=== PATIENT | male | born 1945 | race Caucasian/White ===

== ENCOUNTER 2019-08-22 08:25 | Inpatient (IN) ==
[2019-08-22] MEDS ORDERED: Gadolinium Contrast Agent (WT Based) IV PRN (11:09)
[2019-08-22] MEDS ORDERED: Ringers Solution, Lactated 1,000 ML IVC ONE (11:16)
[2019-08-22] MEDS: Ondansetron ODT 4 MG TAB.RAPDIS SL PRN (12:01)
[2019-08-22] MEDS ORDERED: *HR* LORazepam 2 MG/ML VIAL IM STA (15:00)
[2019-08-22] MEDS ORDERED: Ringers Solution, Lactated 500 ML IVC ONE (15:48)
[2019-08-22] MEDS ORDERED: D5% in Water 1,000 ML IVC PRN (17:49)
[2019-08-22] MEDS ORDERED: *HR* Dextrose 50 % in Water (Syg) 50 ML SYRINGE IVP PRN (17:49)
[2019-08-22] MEDS ORDERED: Dextrose Gel 15 GM/37.5 ML TUBE PO PRN ×2 (17:49)
[2019-08-22] MEDS: Insulin LISPRO 300 UNITS/3 ML VIAL SQ SCH (18:18)
[2019-08-22] MEDS: cefTRIAXone 2,000 MG in Water for inj. (sterile) 20 ML IVP SCH (18:44)
[2019-08-22] MEDS: Finasteride 5 MG TABLET PO SCH (18:44)
[2019-08-22] MEDS ORDERED: *HR* LORazepam 2 MG/ML VIAL IVP ONE (19:41)
[2019-08-22] MEDS: Acetaminophen 325 MG TABLET PO SCH (20:41)
[2019-08-22] MEDS: QUEtiapine Fumarate 25 MG TABLET PO SCH (20:41)
[2019-08-22] MEDS ORDERED: metroNIDAZOLE 500 MG TABLET PO SCH (21:00)
[2019-08-22] MEDS: Haloperidol Lactate 5 MG/ML VIAL IVP PRN (21:16)
[2019-08-22] MEDS ORDERED: *HR* Promethazine 25 MG/ML VIAL IVP STA (21:18)
[2019-08-22 23:53] LABS: ABG Base Excess -2 mEq/L (-2 to 3); ABG HCO3 22 mEq/L (21-27); ABG Oxygen Saturation 96 % (95-98); ABG PCO2 33 mmHg (35-45); ABG PH 7.43 pH Units (7.32-7.45); ABG PO2 80 mmHg (85-104); ABG TCO2 23 mEq/L (20-26)
[2019-08-23] MEDS: Insulin LISPRO 300 UNITS/3 ML VIAL SQ SCH ×5 (00:10→22:23)
[2019-08-23] MEDS: Haloperidol Lactate 5 MG/ML VIAL IVP PRN ×2 (01:48→22:15)
[2019-08-23] MEDS: *HR* Promethazine 25 MG/ML VIAL IVP PRN ×2 (01:52→22:16)
[2019-08-23] MEDS ORDERED: Ziprasidone 10 MG in Water for inj. (sterile) 0.5 ML IM ONE (02:52)
[2019-08-23 05:25] LABS: Basophils % 0.4 %; Eosinophils % 0.5 %; Hematocrit 42.8 % (37.5-50.1); Hemoglobin 13.9 g/dL (12.9-16.9); Immature Granulocytes % 0.6 % (0-4); Lymphocytes # 0.6 K/mcL (0.6-4.6); Lymphocytes % 7.2 %; Mean Corpuscular HGB Conc 32.5 g/dL (31.6-35.5); Mean Corpuscular Hemoglobin 29.8 pg (28.0-33.3); Mean Corpuscular Volume 91.6 fL (83.0-100.0); Mean Platelet Volume 9.8 fL (9.4-12.4); Monocytes # 0.8 K/mcL (0.0-1.3); Monocytes % 9.9 %; Neutrophils # 6.9 K/mcL (1.6-8.9); Platelet Count 229 K/mcL (140-400); Red Blood Count 4.67 M/mcL (4.19-5.50); Red Cell Distribution Width 13.2 % (11.5-14.5); Segmented Neutrophils % 81.4 %; White Blood Count 8.4 K/mcL (4.3-11.1)
[2019-08-23 05:41] LABS: BUN/Creatinine Ratio 18 (6-26); Blood Urea Nitrogen 23 mg/dL (8-23); Calcium 8.8 mg/dL (8.6-10.3); Carbon Dioxide 22 mEq/L (23-29); Chloride 101 mEq/L (98-107); Glucose 148 mg/dL (70-105); Osmolality,Calculated 288 (280-300); Potassium 3.9 mEq/L (3.5-5.1); Sodium 136 mEq/L (136-145); eGFR For African Americans > 60 (> 60); eGFR For Non-African Americans 56 (> 60)
[2019-08-23] MEDS ORDERED: Acetaminophen IV 1,000 MG/100 ML INFUS..BTL IVPB ONE (07:08)
[2019-08-23] MEDS: Finasteride 5 MG TABLET PO SCH (08:46)
[2019-08-23] MEDS: MetroNIDAZOLE 500 MG/100 ML 500 MG/100 ML BAG IVPB SCH ×2 (08:47→15:41)
[2019-08-23] MEDS: Acetaminophen 325 MG TABLET PO SCH ×3 (08:47→20:35)
[2019-08-23 09:32] LABS: Alanine Aminotransferase 13 Units/L (7-52); Albumin 3.4 g/dL (3.5-5.7); Albumin/Globulin Ratio 1.2 (1.1-2.2); Alkaline Phosphatase 59 Units/L (34-104); Aspartate Amino Transferase 21 Units/L (13-39); Bilirubin,Direct 0.5 mg/dL (0.0-0.2); Bilirubin,Indirect 0.8 mg/dL (0.0-1.0); Bilirubin,Total 1.3 mg/dL (0.3-1.0); Globulin 2.9 g/dL (2.4-3.5); Total Protein 6.3 g/dL (6.4-8.9)
[2019-08-23] MEDS: cefTRIAXone 2,000 MG in Water for inj. (sterile) 20 ML IVP SCH (17:59)
[2019-08-23] MEDS: *HR* Heparin 5,000 UNIT/ML VIAL SQ SCH (18:01)
[2019-08-23] MEDS: QUEtiapine Fumarate 25 MG TABLET PO SCH (20:35)
[2019-08-24] MEDS: MetroNIDAZOLE 500 MG/100 ML 500 MG/100 ML BAG IVPB SCH ×3 (01:09→16:30)
[2019-08-24] MEDS ORDERED: Acetaminophen IV 1,000 MG/100 ML INFUS..BTL IVPB ONE (01:47)
[2019-08-24] MEDS ORDERED: Ziprasidone 10 MG in Water for inj. (sterile) 0.5 ML IM PRN ×2 (01:49→20:57)
[2019-08-24] MEDS ORDERED: Ziprasidone 10 MG in Water for inj. (sterile) 0.5 ML IM ONE ×2 (02:31→23:30)
[2019-08-24] MEDS: Haloperidol Lactate 5 MG/ML VIAL IVP PRN (05:17)
[2019-08-24 06:31] LABS: Basophils % 0.5 %; Eosinophils # 0.1 K/mcL (0.0-0.6); Eosinophils % 0.8 %; Hematocrit 43.9 % (37.5-50.1); Hemoglobin 14.2 g/dL (12.9-16.9); Immature Granulocytes % 0.7 % (0-4); Lymphocytes # 0.8 K/mcL (0.6-4.6); Lymphocytes % 9.7 %; Mean Corpuscular HGB Conc 32.3 g/dL (31.6-35.5); Mean Corpuscular Hemoglobin 30.1 pg (28.0-33.3); Mean Corpuscular Volume 93.2 fL (83.0-100.0); Mean Platelet Volume 9.6 fL (9.4-12.4); Monocytes # 0.9 K/mcL (0.0-1.3); Monocytes % 10.5 %; Neutrophils # 6.5 K/mcL (1.6-8.9); Platelet Count 223 K/mcL (140-400); Red Blood Count 4.71 M/mcL (4.19-5.50); Red Cell Distribution Width 13.2 % (11.5-14.5); Segmented Neutrophils % 77.8 %; White Blood Count 8.4 K/mcL (4.3-11.1)
[2019-08-24 06:49] LABS: BUN/Creatinine Ratio 23 (6-26); Blood Urea Nitrogen 27 mg/dL (8-23); Calcium 8.9 mg/dL (8.6-10.3); Carbon Dioxide 22 mEq/L (23-29); Chloride 101 mEq/L (98-107); Glucose 138 mg/dL (70-105); Osmolality,Calculated 285 (280-300); Potassium 3.9 mEq/L (3.5-5.1); Sodium 134 mEq/L (136-145); eGFR For African Americans > 60 (> 60); eGFR For Non-African Americans 60 (> 60)
[2019-08-24] MEDS: *HR* Heparin 5,000 UNIT/ML VIAL SQ SCH ×2 (07:01→18:51)
[2019-08-24] MEDS: Insulin LISPRO 300 UNITS/3 ML VIAL SQ SCH ×4 (08:58→20:23)
[2019-08-24] MEDS: Finasteride 5 MG TABLET PO SCH (09:05)
[2019-08-24] MEDS: Acetaminophen 325 MG TABLET PO SCH ×3 (09:05→20:28)
[2019-08-24] MEDS: *HR* Metoprolol 5 MG/5 ML VIAL IVP PRN (13:26)
[2019-08-24] MEDS ORDERED: OLANZapine 10 MG VIAL IM ONE (18:00)
[2019-08-24] MEDS: cefTRIAXone 2,000 MG in Water for inj. (sterile) 20 ML IVP SCH (18:50)
[2019-08-24] MEDS ORDERED: Isovue-370 500 ML BOTTLE IVP ONE (21:44)
[2019-08-25] MEDS: Haloperidol Lactate 5 MG/ML VIAL IVP PRN (00:39)
[2019-08-25] MEDS: MetroNIDAZOLE 500 MG/100 ML 500 MG/100 ML BAG IVPB SCH ×3 (00:55→16:05)
[2019-08-25] MEDS ORDERED: Vancomycin 1,750 MG in 0.9 % Sodium Chloride 250 ML IVPB SCH (01:00)
[2019-08-25] MEDS: QUEtiapine Fumarate 25 MG TABLET PO SCH ×2 (01:38→19:54)
[2019-08-25] MEDS: *HR* Promethazine 25 MG/ML VIAL IVP PRN (01:38)
[2019-08-25] MEDS: *HR* Metoprolol 5 MG/5 ML VIAL IVP PRN ×2 (06:30→14:13)
[2019-08-25] MEDS ORDERED: Haloperidol Lactate 5 MG/ML VIAL IM PRN (06:39)
[2019-08-25] MEDS ORDERED: Haloperidol Lactate 5 MG/ML VIAL IVP ONE (06:43)
[2019-08-25] MEDS ORDERED: 0.9 % Sodium Chloride 1,000 ML ONE (06:55)
[2019-08-25] MEDS ORDERED: 0.9 % Sodium Chloride 1,000 ML IVC ONE (07:00)
[2019-08-25] MEDS: Piperacillin/Tazobactam 3.375 GM in 0.9 % Sodium Chloride Mini Bag 100 ML IVPB SCH ×3 (07:46→16:04)
[2019-08-25 08:25] LABS: Basophils % 0.3 %; Eosinophils # 0.1 K/mcL (0.0-0.6); Eosinophils % 0.7 %; Hemoglobin 13.4 g/dL (12.9-16.9); Immature Granulocytes % 0.6 % (0-4); Lymphocytes # 0.7 K/mcL (0.6-4.6); Lymphocytes % 7.8 %; Mean Corpuscular HGB Conc 33.5 g/dL (31.6-35.5); Mean Corpuscular Hemoglobin 29.8 pg (28.0-33.3); Mean Corpuscular Volume 89.1 fL (83.0-100.0); Mean Platelet Volume 9.8 fL (9.4-12.4); Monocytes # 0.8 K/mcL (0.0-1.3); Monocytes % 9.2 %; Platelet Count 250 K/mcL (140-400); Red Blood Count 4.49 M/mcL (4.19-5.50); Red Cell Distribution Width 13.2 % (11.5-14.5); Segmented Neutrophils % 81.4 %; White Blood Count 8.6 K/mcL (4.3-11.1)
[2019-08-25] MEDS: *HR* Heparin 5,000 UNIT/ML VIAL SQ SCH (08:45)
[2019-08-25 08:50] LABS: BUN/Creatinine Ratio 24 (6-26); Blood Urea Nitrogen 27 mg/dL (8-23); Calcium 8.7 mg/dL (8.6-10.3); Carbon Dioxide 23 mEq/L (23-29); Chloride 103 mEq/L (98-107); Glucose 145 mg/dL (70-105); Osmolality,Calculated 290 (280-300); Potassium 4.3 mEq/L (3.5-5.1); Sodium 136 mEq/L (136-145); eGFR For African Americans > 60 (> 60); eGFR For Non-African Americans > 60 (> 60)
[2019-08-25] MEDS ORDERED: Haloperidol Lactate 5 MG/ML VIAL IVP PRN (09:00)
[2019-08-25] MEDS: Insulin LISPRO 300 UNITS/3 ML VIAL SQ SCH ×4 (09:55→20:05)
[2019-08-25] MEDS: Acetaminophen 325 MG TABLET PO SCH ×3 (10:01→20:03)
[2019-08-25] MEDS: Finasteride 5 MG TABLET PO SCH ×2 (10:01→15:15)
[2019-08-25 11:57] LABS: Source,Synovial Fluid L knee
[2019-08-25 12:29] LABS: Color,Synovial Fluid Straw (Straw)
[2019-08-25 12:30] LABS: Appearance,Synovial Fluid Cloudy (Clear-Hazy)
[2019-08-25 12:41] LABS: Bilirubin,Urine Negative (Negative); Blood,Urine Large (Negative); Clarity,Urine Cloudy (Clear); Color,Urine Yellow (Yellow); Glucose,Urine (UA) Normal (Normal); Ketones,Urine 15 mg/dL (Negative); Leukocyte Esterase,Urine Trace (Negative); Nitrite,Urine Negative (Negative); Protein,Urine >=300 mg/dL (Neg-Trace); Specific Gravity,Urine > 1.030 (1.010-1.025); Urobilinogen,Urine Normal (Normal)
[2019-08-25 12:42] LABS: Lymphocytes,Synovial Fluid 0 %
[2019-08-25 12:44] LABS: Bacteria,Urine None Seen per hpf (None-Few); RBC,Urine TNTC per hpf (0-3); Squamous Epithelial Cell,Urine Many per lpf (None-Few)
[2019-08-26] MEDS: Piperacillin/Tazobactam 3.375 GM in 0.9 % Sodium Chloride Mini Bag 100 ML IVPB SCH ×3 (00:27→16:35)
[2019-08-26] MEDS: *HR* Promethazine 25 MG/ML VIAL IVP PRN (00:29)
[2019-08-26] MEDS: *HR* Metoprolol 5 MG/5 ML VIAL IVP PRN ×2 (02:21→08:32)
[2019-08-26 05:05] LABS: Basophils % 0.4 %; Eosinophils # 0.2 K/mcL (0.0-0.6); Eosinophils % 2.4 %; Hematocrit 40.2 % (37.5-50.1); Hemoglobin 13.3 g/dL (12.9-16.9); Immature Granulocytes % 0.9 % (0-4); Lymphocytes # 0.7 K/mcL (0.6-4.6); Lymphocytes % 8.6 %; Mean Corpuscular HGB Conc 33.1 g/dL (31.6-35.5); Mean Corpuscular Hemoglobin 29.5 pg (28.0-33.3); Mean Corpuscular Volume 89.1 fL (83.0-100.0); Mean Platelet Volume 9.7 fL (9.4-12.4); Monocytes # 0.7 K/mcL (0.0-1.3); Monocytes % 8.1 %; Neutrophils # 6.4 K/mcL (1.6-8.9); Platelet Count 279 K/mcL (140-400); Red Blood Count 4.51 M/mcL (4.19-5.50); Red Cell Distribution Width 13.4 % (11.5-14.5); Segmented Neutrophils % 79.6 %
[2019-08-26 05:23] LABS: BUN/Creatinine Ratio 25 (6-26); Blood Urea Nitrogen 26 mg/dL (8-23); Calcium 8.6 mg/dL (8.6-10.3); Carbon Dioxide 23 mEq/L (23-29); Chloride 105 mEq/L (98-107); Glucose 139 mg/dL (70-105); Osmolality,Calculated 289 (280-300); Potassium 3.8 mEq/L (3.5-5.1); Sodium 136 mEq/L (136-145); eGFR For African Americans > 60 (> 60); eGFR For Non-African Americans > 60 (> 60)
[2019-08-26] MEDS: Finasteride 5 MG TABLET PO SCH (08:32)
[2019-08-26] MEDS: Acetaminophen 325 MG TABLET PO SCH ×3 (08:33→20:55)
[2019-08-26] MEDS: Insulin LISPRO 300 UNITS/3 ML VIAL SQ SCH ×4 (08:35→21:11)
[2019-08-26] MEDS ORDERED: Aminoglycoside Consult 1 EACH MC ONE (09:39)
[2019-08-26 10:47] LABS: Uric Acid 4.7 mg/dL (2.3-7.6)
[2019-08-26] MEDS: QUEtiapine Fumarate 25 MG TABLET PO SCH (16:34)
[2019-08-26] MEDS: Ondansetron ODT 4 MG TAB.RAPDIS SL PRN (16:44)
[2019-08-27] MEDS: Piperacillin/Tazobactam 3.375 GM in 0.9 % Sodium Chloride Mini Bag 100 ML IVPB SCH ×2 (00:32→09:30)
[2019-08-27] MEDS: Diclofenac Sodium (DR) 50 MG TABLET.DR PO SCH ×2 (00:32→11:41)
[2019-08-27 05:33] LABS: Basophils % 0.5 %; Eosinophils # 0.1 K/mcL (0.0-0.6); Eosinophils % 1.5 %; Hemoglobin 14.5 g/dL (12.9-16.9); Lymphocytes # 0.5 K/mcL (0.6-4.6); Lymphocytes % 6.9 %; Mean Corpuscular Hemoglobin 29.6 pg (28.0-33.3); Mean Corpuscular Volume 89.8 fL (83.0-100.0); Mean Platelet Volume 9.6 fL (9.4-12.4); Monocytes # 0.6 K/mcL (0.0-1.3); Monocytes % 7.4 %; Neutrophils # 6.4 K/mcL (1.6-8.9); Platelet Count 287 K/mcL (140-400); Red Cell Distribution Width 13.5 % (11.5-14.5); Segmented Neutrophils % 82.7 %; White Blood Count 7.8 K/mcL (4.3-11.1)
[2019-08-27 05:45] LABS: BUN/Creatinine Ratio 26 (6-26); Blood Urea Nitrogen 27 mg/dL (8-23); Calcium 8.7 mg/dL (8.6-10.3); Carbon Dioxide 22 mEq/L (23-29); Chloride 106 mEq/L (98-107); Glucose 175 mg/dL (70-105); Osmolality,Calculated 299 (280-300); Potassium 3.9 mEq/L (3.5-5.1); Sodium 140 mEq/L (136-145); eGFR For African Americans > 60 (> 60); eGFR For Non-African Americans > 60 (> 60)
[2019-08-27] MEDS: *HR* Heparin 5,000 UNIT/ML VIAL SQ SCH ×2 (07:01→17:12)
[2019-08-27] MEDS: Insulin LISPRO 300 UNITS/3 ML VIAL SQ SCH ×4 (09:31→20:36)
[2019-08-27] MEDS: Finasteride 5 MG TABLET PO SCH (11:47)
[2019-08-27] MEDS: Acetaminophen 325 MG TABLET PO SCH ×3 (11:47→20:37)
[2019-08-27] MEDS: QUEtiapine Fumarate 25 MG TABLET PO SCH (17:12)
[2019-08-28] MEDS: *HR* Metoprolol 5 MG/5 ML VIAL IVP PRN (04:53)
[2019-08-28 05:53] LABS: BUN/Creatinine Ratio 31 (6-26); Blood Urea Nitrogen 30 mg/dL (8-23); Calcium 8.3 mg/dL (8.6-10.3); Carbon Dioxide 25 mEq/L (23-29); Chloride 102 mEq/L (98-107); Glucose 137 mg/dL (70-105); Osmolality,Calculated 294 (280-300); Potassium 3.5 mEq/L (3.5-5.1); Sodium 138 mEq/L (136-145); eGFR For African Americans > 60 (> 60); eGFR For Non-African Americans > 60 (> 60)
[2019-08-28] MEDS: *HR* Heparin 5,000 UNIT/ML VIAL SQ SCH ×2 (07:08→16:52)
[2019-08-28] MEDS: Insulin LISPRO 300 UNITS/3 ML VIAL SQ SCH ×3 (08:03→16:49)
[2019-08-28] MEDS: Finasteride 5 MG TABLET PO SCH (08:50)
[2019-08-28] MEDS: Acetaminophen 325 MG TABLET PO SCH ×2 (08:51→16:52)
[2019-08-28 15:18] VITALS: BP 135/95
[2019-08-28] MEDS: QUEtiapine Fumarate 25 MG TABLET PO SCH (16:52)
== END 2019-08-28 17:48 | disposition other institution (70) | DRG 562 ==
LOC: 3ANU → SUATTDRO 13:03
PROVIDERS: ADMIT Internal Medicine; ATTEND Internal Medicine

== ENCOUNTER 2019-09-03 23:40 | Inpatient (IN) ==
[2019-09-04] MEDS ORDERED: Naloxone 0.4 MG/ML INJ IVP PRN (02:27)
[2019-09-04] MEDS ORDERED: 0.9 % Sodium Chloride 1,000 ML IVC SCH (03:15)
[2019-09-04] MEDS ORDERED: Acetaminophen 325 MG TABLET PO PRN (03:18)
[2019-09-04 06:17] LABS: Basophils % 0.7 %; Eosinophils # 0.1 K/mcL (0.0-0.6); Eosinophils % 2.5 %; Hematocrit 40.1 % (37.5-50.1); Hemoglobin 13.5 g/dL (12.9-16.9); Immature Granulocytes % 1.4 % (0-4); Lymphocytes # 0.6 K/mcL (0.6-4.6); Lymphocytes % 10.6 %; Mean Corpuscular HGB Conc 33.7 g/dL (31.6-35.5); Mean Corpuscular Hemoglobin 29.7 pg (28.0-33.3); Mean Corpuscular Volume 88.3 fL (83.0-100.0); Mean Platelet Volume 9.3 fL (9.4-12.4); Monocytes # 0.4 K/mcL (0.0-1.3); Monocytes % 7.4 %; Neutrophils # 4.3 K/mcL (1.6-8.9); Platelet Count 183 K/mcL (140-400); Red Blood Count 4.54 M/mcL (4.19-5.50); Red Cell Distribution Width 13.1 % (11.5-14.5); Segmented Neutrophils % 77.4 %; White Blood Count 5.5 K/mcL (4.3-11.1)
[2019-09-04 06:21] LABS: INR 1.5; Prothrombin Time 17.6 Seconds (9.4-12.1)
[2019-09-04 06:24] LABS: Activated Partial Thrombo Time 32.8 Seconds (26.0-36.0)
[2019-09-04 06:42] LABS: Alanine Aminotransferase 21 Units/L (7-52); Albumin 2.6 g/dL (3.5-5.7); Alkaline Phosphatase 79 Units/L (34-104); Aspartate Amino Transferase 29 Units/L (13-39); BUN/Creatinine Ratio 17 (6-26); Bilirubin,Total 0.7 mg/dL (0.3-1.0); Blood Urea Nitrogen 16 mg/dL (8-23); Carbon Dioxide 23 mEq/L (23-29); Chloride 104 mEq/L (98-107); Globulin 2.5 g/dL (2.4-3.5); Glucose 118 mg/dL (70-105); Osmolality,Calculated 288 (280-300); Potassium 3.7 mEq/L (3.5-5.1); Sodium 138 mEq/L (136-145); Total Protein 5.1 g/dL (6.4-8.9); eGFR For African Americans > 60 (> 60); eGFR For Non-African Americans > 60 (> 60)
[2019-09-04] MEDS: *HR* Heparin 5,000 UNIT/ML VIAL SQ SCH ×3 (06:47→21:29)
[2019-09-04] MEDS: Piperacillin/Tazobactam 3.375 GM in 0.9 % Sodium Chloride Mini Bag 100 ML IVPB SCH ×3 (08:25→23:39)
[2019-09-04] MEDS ORDERED: Prochlorperazine 10 MG/2 ML VIAL IVP PRN (20:25)
[2019-09-04] MEDS: Azithromycin 500 MG in 0.9 % Sodium Chloride 250 ML IVPB SCH (21:29)
[2019-09-04] MEDS ORDERED: *HR* LORazepam 2 MG/ML VIAL IVP ONE (23:07)
[2019-09-05 05:17] LABS: Hematocrit 40.7 % (37.5-50.1); Hemoglobin 13.7 g/dL (12.9-16.9); Mean Corpuscular HGB Conc 33.7 g/dL (31.6-35.5); Mean Corpuscular Hemoglobin 29.8 pg (28.0-33.3); Mean Corpuscular Volume 88.5 fL (83.0-100.0); Platelet Count 232 K/mcL (140-400); Red Cell Distribution Width 13.2 % (11.5-14.5); White Blood Count 6.7 K/mcL (4.3-11.1)
[2019-09-05 05:37] LABS: BUN/Creatinine Ratio 16 (6-26); Blood Urea Nitrogen 17 mg/dL (8-23); Calcium 8.1 mg/dL (8.6-10.3); Carbon Dioxide 25 mEq/L (23-29); Chloride 104 mEq/L (98-107); Glucose 116 mg/dL (70-105); Osmolality,Calculated 291 (280-300); Potassium 3.7 mEq/L (3.5-5.1); Sodium 139 mEq/L (136-145); eGFR For African Americans > 60 (> 60); eGFR For Non-African Americans > 60 (> 60)
[2019-09-05] MEDS: *HR* Heparin 5,000 UNIT/ML VIAL SQ SCH ×3 (05:52→20:06)
[2019-09-05] MEDS: Piperacillin/Tazobactam 3.375 GM in 0.9 % Sodium Chloride Mini Bag 100 ML IVPB SCH ×2 (09:16→15:00)
[2019-09-05] MEDS: Finasteride 5 MG TABLET PO SCH (09:17)
[2019-09-05] MEDS: Azithromycin 500 MG in 0.9 % Sodium Chloride 250 ML IVPB SCH (23:10)
[2019-09-05] MEDS ORDERED: *HR* LORazepam 2 MG/ML VIAL IVP ONE (23:20)
[2019-09-06 01:22] LABS: ABG Base Excess 0 mEq/L (-2 to 3); ABG HCO3 24 mEq/L (21-27); ABG Oxygen Saturation 94 % (95-98); ABG PCO2 36 mmHg (35-45); ABG PH 7.43 pH Units (7.32-7.45); ABG PO2 67 mmHg (85-104); ABG TCO2 25 mEq/L (20-26)
[2019-09-06 01:28] LABS: Hematocrit 39.6 % (37.5-50.1); Hemoglobin 13.7 g/dL (12.9-16.9); Mean Corpuscular HGB Conc 34.6 g/dL (31.6-35.5); Mean Corpuscular Hemoglobin 30.3 pg (28.0-33.3); Mean Corpuscular Volume 87.6 fL (83.0-100.0); Mean Platelet Volume 9.8 fL (9.4-12.4); Platelet Count 239 K/mcL (140-400); Red Blood Count 4.52 M/mcL (4.19-5.50); Red Cell Distribution Width 13.2 % (11.5-14.5); White Blood Count 6.6 K/mcL (4.3-11.1)
[2019-09-06 01:50] LABS: BUN/Creatinine Ratio 14 (6-26); Blood Urea Nitrogen 13 mg/dL (8-23); Calcium 8.2 mg/dL (8.6-10.3); Carbon Dioxide 24 mEq/L (23-29); Chloride 108 mEq/L (98-107); Glucose 117 mg/dL (70-105); Osmolality,Calculated 289 (280-300); Potassium 3.7 mEq/L (3.5-5.1); Sodium 139 mEq/L (136-145); eGFR For African Americans > 60 (> 60); eGFR For Non-African Americans > 60 (> 60)
[2019-09-06] MEDS: Piperacillin/Tazobactam 3.375 GM in 0.9 % Sodium Chloride Mini Bag 100 ML IVPB SCH (02:03)
[2019-09-06] MEDS ORDERED: *HR* Promethazine 25 MG/ML VIAL IVP ONE (02:33)
[2019-09-06] MEDS: *HR* Heparin 5,000 UNIT/ML VIAL SQ SCH (05:58)
[2019-09-06] MEDS: Finasteride 5 MG TABLET PO SCH (09:45)
[2019-09-06 11:58] VITALS: BP 145/97
[2019-09-06] MEDS ORDERED: QUEtiapine Fumarate 25 MG TABLET PO SCH (18:00)
[2019-09-06] MEDS ORDERED: Azithromycin 250 MG TABLET PO SCH (21:00)
[2019-09-06] MEDS ORDERED: Cefdinir 300 MG CAPSULE PO SCH (21:00)
== END 2019-09-06 14:38 | DRG 193 ==
LOC: 2NENU → SUATTDRO 09-04 01:25
PROVIDERS: ADMIT Internal Medicine; ATTEND Family Medicine

== ENCOUNTER 2021-10-10 09:04 | Inpatient (IN) ==
[2021-10-10] MEDS ORDERED: Isovue-370 500 ML BOTTLE IVP ONE (11:50)
[2021-10-10] MEDS ORDERED: Acetaminophen 325 MG TABLET PO PRN (12:18)
[2021-10-10] MEDS ORDERED: Naloxone 0.4 MG/ML INJ IVP PRN (12:18)
[2021-10-10] MEDS ORDERED: *HR* Dextrose 50 % in Water (Syg) 50 ML SYRINGE IVP PRN (12:18)
[2021-10-10] MEDS ORDERED: Dextrose 4 GM Chewable Tablets PO PRN ×2 (12:18)
[2021-10-10] MEDS ORDERED: D5% in Water 1,000 ML IVC PRN (12:18)
[2021-10-10] MEDS ORDERED: Ondansetron 4 MG/2 ML VIAL IVP PRN (12:18)
[2021-10-10] MEDS ORDERED: Perflutren Lipid Microsphere 1.3 ML in 0.9 % Sodium Chloride 8.7 ML IVP PRN (12:37)
[2021-10-10] MEDS ORDERED: Furosemide 40 MG/4 ML VIAL IVP ONE (12:40)
[2021-10-10] MEDS ORDERED: Pantoprazole 40 MG VIAL IVP ONE (14:03)
[2021-10-10] MEDS ORDERED: *HR* HYDROcodone/Acet 5/325 mg TABLET PO PRN (15:47)
[2021-10-10] MEDS ORDERED: GI Cocktail 40 ML EACH PO ONE (15:47)
[2021-10-10] MEDS: Insulin LISPRO 300 UNITS/3 ML VIAL SUBQ SCH (15:49)
[2021-10-10] MEDS ORDERED: Apixaban 5 MG TABLET PO SCH (21:00)
[2021-10-11 02:46] LABS: Basophils % 0.3 %; Eosinophils % 0.2 %; Hematocrit 40.7 % (37.5-50.1); Hemoglobin 13.5 g/dL (12.9-16.9); Immature Granulocytes % 0.4 % (0-4); Lymphocytes # 0.6 K/mcL (0.6-4.6); Lymphocytes % 5.5 %; Mean Corpuscular HGB Conc 33.2 g/dL (31.6-35.5); Mean Corpuscular Volume 90.4 fL (83.0-100.0); Mean Platelet Volume 9.9 fL (9.4-12.4); Monocytes # 1.1 K/mcL (0.0-1.3); Monocytes % 9.9 %; Neutrophils # 9.6 K/mcL (1.6-8.9); Platelet Count 178 K/mcL (140-400); Red Cell Distribution Width 13.6 % (11.5-14.5); Segmented Neutrophils % 83.7 %; White Blood Count 11.5 K/mcL (4.3-11.1)
[2021-10-11 03:08] LABS: BUN/Creatinine Ratio 13 (6-26); Blood Urea Nitrogen 14 mg/dL (8-23); Calcium 8.8 mg/dL (8.6-10.3); Carbon Dioxide 26 mEq/L (23-29); Chloride 100 mEq/L (98-107); Chol/HDL Ratio 3.2 (0-4.9); Cholesterol 128 mg/dL (< 200); Glucose 150 mg/dL (70-105); HDL Cholesterol 40 mg/dL (40-59); LDL Cholesterol,Calculated 57 mg/dL (< 100); Magnesium 1.3 mg/dL (1.6-2.6); Osmolality,Calculated 287 (280-300); Potassium 4.2 mEq/L (3.5-5.1); Sodium 137 mEq/L (136-145); Triglycerides 157 mg/dL (< 150); Troponin I < 0.03 ng/mL (< 0.04); eGFR For African Americans > 60 (> 60); eGFR For Non-African Americans > 60 (> 60)
[2021-10-11 07:13] LABS: Estimated Average Glucose 154 mg/dl
[2021-10-11] MEDS: Insulin LISPRO 300 UNITS/3 ML VIAL SUBQ SCH ×3 (07:39→17:30)
[2021-10-11 08:25] LABS: Alanine Aminotransferase 14 Units/L (7-52); Albumin 3.7 g/dL (3.5-5.7); Albumin/Globulin Ratio 1.5 (1.1-2.2); Alkaline Phosphatase 32 Units/L (34-104); Aspartate Amino Transferase 17 Units/L (13-39); Bilirubin,Direct 0.2 mg/dL (0.0-0.2); Bilirubin,Indirect 0.9 mg/dL (0.0-1.0); Bilirubin,Total 1.1 mg/dL (0.3-1.0); Globulin 2.4 g/dL (2.4-3.5); Total Protein 6.1 g/dL (6.4-8.9)
[2021-10-11] MEDS: Finasteride 5 MG TABLET PO SCH (10:13)
[2021-10-11] MEDS: cefTRIAXone 1,000 MG in 0.9 % Sodium Chloride 10 ML IVP SCH (10:16)
[2021-10-11] MEDS: MetroNIDAZOLE 500 MG/100 ML 500 MG/100 ML BAG IVPB SCH ×3 (10:16→23:57)
[2021-10-11] MEDS ORDERED: *HR* HYDROcodone/Acet 5/325 mg TABLET PO PRN (11:06)
[2021-10-11 13:07] LABS: Adenovirus Not Detected (Not Detect); Bordetella Pertussis Not Detected (Not Detect); Chlamydophila pneumoniae Not Detected (Not Detect); Coronavirus 229E Not Detected (Not Detect); Coronavirus HKU1 Not Detected (Not Detect); Coronavirus NL63 Not Detected (Not Detect); Coronavirus OC43 Not Detected (Not Detect); Human Metapneumovirus Not Detected (Not Detect); Human Rhinovirus/Enterovirus Not Detected (Not Detect); Influenza A Subtype 2009 H1 Not Detected (Not Detect); Influenza B Not Detected (Not Detect); Mycoplasma pneumoniae Not Detected (Not Detect); Parainfluenza Virus 1 Not Detected (Not Detect); Parainfluenza Virus 2 Not Detected (Not Detect); Parainfluenza Virus 3 Not Detected (Not Detect); Parainfluenza Virus 4 DETECTED (Not Detect); Respiratory Syncytial Virus Not Detected (Not Detect); SARS-CoV-2 Not Detected (Not Detect)
[2021-10-11] MEDS: *HR* Heparin 5,000 UNIT/ML VIAL SQ SCH (17:53)
[2021-10-12] MEDS: *HR* Heparin 5,000 UNIT/ML VIAL SQ SCH ×2 (06:57→18:24)
[2021-10-12] MEDS ORDERED: Morphine Sulfate 2 MG/ML SYRINGE IVP ONE (07:51)
[2021-10-12] MEDS: cefTRIAXone 1,000 MG in 0.9 % Sodium Chloride 10 ML IVP SCH (10:10)
[2021-10-12] MEDS: Finasteride 5 MG TABLET PO SCH (10:10)
[2021-10-12] MEDS: MetroNIDAZOLE 500 MG/100 ML 500 MG/100 ML BAG IVPB SCH (10:10)
[2021-10-12] MEDS: Insulin LISPRO 300 UNITS/3 ML VIAL SUBQ SCH ×3 (10:11→16:00)
[2021-10-12] MEDS ORDERED: MetroNIDAZOLE 500 MG/100 ML 500 MG/100 ML BAG IVPB SCH (18:00)
[2021-10-12] MEDS ORDERED: *HR* Rocuronium Bromide 50 MG/5 ML VIAL ONE (19:14)
[2021-10-12] MEDS ORDERED: Lidocaine -MPF 4% 5 ML AMPUL ONE (19:14)
[2021-10-12] MEDS ORDERED: Lidocaine -MPF 2% 5 ML VIAL ONE (19:14)
[2021-10-12] MEDS ORDERED: *HR* FentaNYL (PF) 100 MCG/2 ML VIAL ONE (19:14)
[2021-10-12] MEDS ORDERED: Ondansetron 4 MG/2 ML VIAL ONE (19:14)
[2021-10-12] MEDS ORDERED: *HR* Propofol 200 MG/20 ML VIAL IVP ONE (19:14)
[2021-10-12] MEDS ORDERED: *HR* FentaNYL (PF) 100 MCG/2 ML VIAL IVP PRN (20:04)
[2021-10-12] MEDS ORDERED: Ondansetron 4 MG/2 ML VIAL IVP PRN ×2 (20:04→23:08)
[2021-10-12] MEDS ORDERED: EPHEDrine 50 MG/ML VIAL ONE (20:43)
[2021-10-12] MEDS ORDERED: *HR* Metoprolol 5 MG/5 ML VIAL IVP ONE (21:42)
[2021-10-12] MEDS: *HR* HYDROmorphone PF 0.5 MG/0.5 ML SYRINGE IVP PRN ×2 (21:56→22:13)
[2021-10-12] MEDS ORDERED: D5% in Water 1,000 ML IVC PRN (23:08)
[2021-10-12] MEDS ORDERED: Acetaminophen 325 MG TABLET PO PRN (23:08)
[2021-10-12] MEDS ORDERED: *HR* HYDROcodone/Acet 5/325 mg TABLET PO PRN (23:08)
[2021-10-12] MEDS ORDERED: Naloxone 0.4 MG/ML INJ IVP PRN (23:08)
[2021-10-12] MEDS ORDERED: *HR* Dextrose 50 % in Water (Syg) 50 ML SYRINGE IVP PRN (23:08)
[2021-10-12] MEDS ORDERED: Dextrose 4 GM Chewable Tablets PO PRN ×2 (23:08)
[2021-10-13 01:44] LABS: Basophils % 0.3 %; Eosinophils % 0.4 %; Hematocrit 41.2 % (37.5-50.1); Hemoglobin 13.3 g/dL (12.9-16.9); Immature Granulocytes % 0.4 % (0-4); Lymphocytes # 0.4 K/mcL (0.6-4.6); Lymphocytes % 5.1 %; Mean Corpuscular HGB Conc 32.3 g/dL (31.6-35.5); Mean Corpuscular Hemoglobin 30.3 pg (28.0-33.3); Mean Corpuscular Volume 93.8 fL (83.0-100.0); Mean Platelet Volume 9.8 fL (9.4-12.4); Monocytes # 0.3 K/mcL (0.0-1.3); Monocytes % 4.8 %; Neutrophils # 6.1 K/mcL (1.6-8.9); Platelet Count 182 K/mcL (140-400); Red Blood Count 4.39 M/mcL (4.19-5.50); Red Cell Distribution Width 13.3 % (11.5-14.5); White Blood Count 6.8 K/mcL (4.3-11.1)
[2021-10-13] MEDS: MetroNIDAZOLE 500 MG/100 ML 500 MG/100 ML BAG IVPB SCH ×3 (01:51→16:47)
[2021-10-13 01:59] LABS: BUN/Creatinine Ratio 19 (6-26); Blood Urea Nitrogen 23 mg/dL (8-23); Carbon Dioxide 25 mEq/L (23-29); Chloride 101 mEq/L (98-107); Glucose 165 mg/dL (70-105); Osmolality,Calculated 293 (280-300); Potassium 4.3 mEq/L (3.5-5.1); Sodium 138 mEq/L (136-145); eGFR For African Americans > 60 (> 60); eGFR For Non-African Americans 59 (> 60)
[2021-10-13] MEDS: *HR* Heparin 5,000 UNIT/ML VIAL SQ SCH ×2 (06:16→16:48)
[2021-10-13] MEDS: Finasteride 5 MG TABLET PO SCH (08:32)
[2021-10-13] MEDS: cefTRIAXone 1,000 MG in 0.9 % Sodium Chloride 10 ML IVP SCH (08:45)
[2021-10-13] MEDS: Insulin LISPRO 300 UNITS/3 ML VIAL SUBQ SCH ×3 (08:58→16:37)
[2021-10-13] MEDS ORDERED: *HR* LORazepam 2 MG/ML VIAL IVP ONE (16:36)
[2021-10-14] MEDS: MetroNIDAZOLE 500 MG/100 ML 500 MG/100 ML BAG IVPB SCH ×2 (01:43→09:16)
[2021-10-14 02:41] LABS: Basophils % 0.1 %; Hematocrit 37.6 % (37.5-50.1); Hemoglobin 12.2 g/dL (12.9-16.9); Immature Granulocytes % 0.6 % (0-4); Lymphocytes # 0.6 K/mcL (0.6-4.6); Lymphocytes % 8.4 %; Mean Corpuscular HGB Conc 32.4 g/dL (31.6-35.5); Mean Corpuscular Hemoglobin 30.1 pg (28.0-33.3); Mean Corpuscular Volume 92.8 fL (83.0-100.0); Monocytes # 0.7 K/mcL (0.0-1.3); Monocytes % 9.1 %; Neutrophils # 5.8 K/mcL (1.6-8.9); Platelet Count 201 K/mcL (140-400); Red Blood Count 4.05 M/mcL (4.19-5.50); Red Cell Distribution Width 13.2 % (11.5-14.5); Segmented Neutrophils % 81.8 %; White Blood Count 7.1 K/mcL (4.3-11.1)
[2021-10-14 02:54] LABS: BUN/Creatinine Ratio 24 (6-26); Blood Urea Nitrogen 30 mg/dL (8-23); Carbon Dioxide 28 mEq/L (23-29); Chloride 102 mEq/L (98-107); Glucose 119 mg/dL (70-105); Osmolality,Calculated 291 (280-300); Potassium 4.4 mEq/L (3.5-5.1); Sodium 137 mEq/L (136-145); eGFR For African Americans > 60 (> 60); eGFR For Non-African Americans 57 (> 60)
[2021-10-14] MEDS: *HR* Heparin 5,000 UNIT/ML VIAL SQ SCH (05:22)
[2021-10-14] MEDS: Insulin LISPRO 300 UNITS/3 ML VIAL SUBQ SCH ×2 (08:35→12:32)
[2021-10-14] MEDS ORDERED: Ipratropium/Albuterol Neb 3 ML IH PRN (08:36)
[2021-10-14] MEDS ORDERED: Furosemide 40 MG/4 ML VIAL IVP ONE (08:44)
[2021-10-14 08:50] VITALS: O2SAT 92
[2021-10-14] MEDS: Finasteride 5 MG TABLET PO SCH (09:13)
[2021-10-14] MEDS: cefTRIAXone 1,000 MG in 0.9 % Sodium Chloride 10 ML IVP SCH (09:15)
[2021-10-14 13:08] VITALS: PULSE 85; TEMP 98.3
[2021-10-14 13:18] VITALS: BP 161/98
== END 2021-10-14 14:27 | disposition home or self-care (01) | DRG 417 ==
LOC: 2ANU
PROVIDERS: ADMIT Internal Medicine; ATTEND Internal Medicine

== ENCOUNTER 2021-10-15 09:10 | Inpatient (IN) ==
[2021-10-15] MEDS ORDERED: Naloxone 0.4 MG/ML INJ IVP PRN (13:16)
[2021-10-15] MEDS ORDERED: *HR* HYDROcodone/Acet 5/325 mg TABLET PO PRN (13:16)
[2021-10-15] MEDS ORDERED: Ondansetron 4 MG/2 ML VIAL IVP PRN (13:16)
[2021-10-15] MEDS ORDERED: *HR* Dextrose 50 % in Water (Syg) 50 ML SYRINGE IVP PRN (14:07)
[2021-10-15] MEDS ORDERED: D5% in Water 1,000 ML IVC PRN (14:07)
[2021-10-15] MEDS ORDERED: Dextrose 4 GM Chewable Tablets PO PRN ×2 (14:07)
[2021-10-15] MEDS ORDERED: Furosemide 40 MG/4 ML VIAL IVP ONE (17:26)
[2021-10-15] MEDS: Insulin LISPRO 300 UNITS/3 ML VIAL SUBQ SCH (18:39)
[2021-10-15] MEDS: Acetaminophen 325 MG TABLET PO PRN (19:06)
[2021-10-15] MEDS ORDERED: Ipratropium/Albuterol Neb 3 ML IH PRN (19:28)
[2021-10-15] MEDS: Lactobacillus 1 EACH CAP.SPRINK PO SCH (20:04)
[2021-10-15] MEDS: Chlorhexidine Rinse 15 ML MOUTHWASH MM SCH (20:04)
[2021-10-15] MEDS: Apixaban 5 MG TABLET PO SCH (20:04)
[2021-10-15] MEDS ORDERED: Melatonin 3 MG TABLET PO PRN (21:00)
[2021-10-16 05:46] LABS: Hematocrit 42.7 % (37.5-50.1); Mean Corpuscular HGB Conc 32.3 g/dL (31.6-35.5); Mean Corpuscular Volume 92.8 fL (83.0-100.0); Mean Platelet Volume 9.9 fL (9.4-12.4); Platelet Count 190 K/mcL (140-400); Red Cell Distribution Width 13.4 % (11.5-14.5); White Blood Count 6.7 K/mcL (4.3-11.1)
[2021-10-16 05:49] LABS: Hemoglobin 13.8 g/dL (12.9-16.9)
[2021-10-16 05:54] LABS: INR 1.6; Prothrombin Time 18.2 Seconds (9.4-12.1)
[2021-10-16 05:57] LABS: Activated Partial Thrombo Time 34.7 Seconds (26.0-36.0)
[2021-10-16 06:04] LABS: BUN/Creatinine Ratio 20 (6-26); Blood Urea Nitrogen 20 mg/dL (8-23); Calcium 8.6 mg/dL (8.6-10.3); Carbon Dioxide 29 mEq/L (23-29); Chloride 101 mEq/L (98-107); Glucose 113 mg/dL (70-105); Magnesium 1.4 mg/dL (1.6-2.6); Osmolality,Calculated 289 (280-300); Phosphorous 3.3 mg/dL (2.7-4.5); Potassium 3.7 mEq/L (3.5-5.1); Sodium 138 mEq/L (136-145); eGFR For African Americans > 60 (> 60); eGFR For Non-African Americans > 60 (> 60)
[2021-10-16] MEDS: Furosemide 40 MG/4 ML VIAL IVP SCH (10:40)
[2021-10-16] MEDS: Multivit/Ca/Min/Fe/FA 1 TAB TABLET PO SCH (10:41)
[2021-10-16] MEDS: Acetaminophen 325 MG TABLET PO PRN ×2 (10:42→17:21)
[2021-10-16] MEDS: Finasteride 5 MG TABLET PO SCH (10:42)
[2021-10-16] MEDS: Chlorhexidine Rinse 15 ML MOUTHWASH MM SCH ×2 (11:05→19:45)
[2021-10-16] MEDS: Apixaban 5 MG TABLET PO SCH ×2 (11:05→19:45)
[2021-10-16] MEDS: Lactobacillus 1 EACH CAP.SPRINK PO SCH ×2 (11:05→19:45)
[2021-10-16] MEDS: Insulin LISPRO 300 UNITS/3 ML VIAL SUBQ SCH ×3 (11:06→19:41)
[2021-10-16] MEDS: Magnesium Oxide 400 MG TABLET PO SCH (12:08)
[2021-10-17 03:39] VITALS: TEMP 97.8
[2021-10-17 05:56] LABS: BUN/Creatinine Ratio 20 (6-26); Blood Urea Nitrogen 20 mg/dL (8-23); Calcium 8.9 mg/dL (8.6-10.3); Carbon Dioxide 29 mEq/L (23-29); Chloride 98 mEq/L (98-107); Glucose 148 mg/dL (70-105); Magnesium 1.5 mg/dL (1.6-2.6); Osmolality,Calculated 287 (280-300); Potassium 3.4 mEq/L (3.5-5.1); Sodium 136 mEq/L (136-145); eGFR For African Americans > 60 (> 60); eGFR For Non-African Americans > 60 (> 60)
[2021-10-17] MEDS ORDERED: Potassium Chloride Elixir 20 MEQ/15 ML UDC PO ONE (07:33)
[2021-10-17] MEDS: Multivit/Ca/Min/Fe/FA 1 TAB TABLET PO SCH (08:01)
[2021-10-17] MEDS: Apixaban 5 MG TABLET PO SCH (08:02)
[2021-10-17] MEDS: Magnesium Oxide 400 MG TABLET PO SCH (08:02)
[2021-10-17] MEDS: Lactobacillus 1 EACH CAP.SPRINK PO SCH (08:02)
[2021-10-17] MEDS: Finasteride 5 MG TABLET PO SCH (08:02)
[2021-10-17] MEDS: Chlorhexidine Rinse 15 ML MOUTHWASH MM SCH (08:03)
[2021-10-17] MEDS: Furosemide 40 MG/4 ML VIAL IVP SCH (08:03)
[2021-10-17] MEDS: Insulin LISPRO 300 UNITS/3 ML VIAL SUBQ SCH ×2 (08:08→12:45)
[2021-10-17 11:31] VITALS: BP 144/103; PULSE 80; O2SAT 96
== END 2021-10-17 14:31 | disposition home or self-care (01) | DRG 291 ==
LOC: 3NENU → SUATTDRO 11:57
PROVIDERS: ADMIT Internal Medicine; ATTEND Internal Medicine